=== PATIENT | male | born 2005 | race Hispanic/Latino ===

== ENCOUNTER 2023-09-25 10:39 | Emergency (ER) | payer OTHER ==
[~2023-09-25] VITALS: Ht 170.2 cm; Wt 67.9 kg
[2023-09-25] MEDS ORDERED: CETI-24 PO (10:57)
[2023-09-25 12:49] LABS: CHLAMYDIA DNA AMPLIFICATION NEGATIVE (NEGATIVE); GC DNA AMPLIFICATION NEGATIVE (NEGATIVE)
[2023-09-25 14:05] VITALS: BP 128/70; TEMP 98; O2SAT 100
== END 2023-09-25 14:08 | disposition home or self-care (01) ==
LOC: M ED 10:39 → EDBD 10:39 → M ED 14:08
DX: R30.0 Dysuria (principal); Z79.899 Other long term (current) drug therapy

== ENCOUNTER 2024-04-04 11:52 | Emergency (ER) | payer OTHER ==
[~2024-04-04] VITALS: Ht 172.7 cm; Wt 68.6 kg
[~2024-04-04 11:52] MED LIST: CETI-24 PO
[2024-04-04] MEDS ORDERED: CLOT1CRE56 TOP (15:44)
[2024-04-04 15:57] VITALS: BP 144/83; TEMP 97.8; O2SAT 98
== END 2024-04-04 15:58 | disposition home or self-care (01) ==
LOC: M ED 11:52
DX: R21 Rash and other nonspecific skin eruption (principal); B35.4 Tinea corporis; Z79.899 Other long term (current) drug therapy

== ENCOUNTER 2025-06-24 07:52 | Emergency (ER) | payer OTHER ==
[~2025-06-24] VITALS: Ht 172.7 cm; Wt 70.8 kg
[~2025-06-24 07:52] MED LIST changes: +CLOT1CRE56 TOP; +IBUP600T42 PO; +ONDA-282 PO
[2025-06-24] MEDS: ALBUTEROL SULFATE 2.5 MG/0.5 ML INH CONCENTRATE NEB SOLN NEB ONE (10:52)
[2025-06-24 11:07] VITALS: O2SAT 98
[2025-06-24 11:16] VITALS: BP 158/91
[2025-06-24 11:30] VITALS: TEMP 97.8
== END 2025-06-24 11:31 | disposition home or self-care (01) ==
LOC: M ED 07:52
DX: J98.01 Acute bronchospasm (principal); F17.290 Nicotine dependence, other tobacco product, uncomplicated

== ENCOUNTER 2025-06-27 01:46 | Emergency (ER) | payer OTHER ==
[~2025-06-27] VITALS: Ht 172.7 cm; Wt 70.4 kg
[2025-06-27 06:52] LABS: VENOUS BASE EXCESS -2.5 (-2.0-2.0); VENOUS HCO3 23.7 MMOL/L (23.0-27.0); VENOUS O2 SATURATION 89.9 % (60.0-80.0); VENOUS PARTIAL PRESSURE CO2 45.8 mmHg (38.0-50.0); VENOUS PARTIAL PRESSURE O2 63.5 mmHg (30.0-50.0); VENOUS PH 7.332 UNITS (7.330-7.430); VENOUS STANDARD HCO3 22.2 MMOL/L; VENOUS TOTAL CO2 25.1 MMOL/L (24.0-28.0)
[2025-06-27 06:57] LABS: BASO # 0.1 10^3/uL (0.0-0.2); BASO % 0.7 % (0.0-1.0); EOS # 0.2 10^3/uL (0.0-0.5); EOS % 2.5 % (0.0-3.0); LYMPH # 2.9 10^3/uL (1.5-5.0); LYMPH % 42.7 % (24.0-44.0); MONO # 0.5 10^3/uL (0.0-0.8); MONO % 7.5 % (2.0-8.0); NEUTROPHILS # 3.1 10^3/uL (1.5-8.5); NEUTROPHILS % 46.0 % (36.0-66.0); PLATELET COUNT, AUTOMATED 301 10^3/uL (150-450)
[2025-06-27] MEDS ORDERED: ISOVUE-370 76% 100 ML VIAL As Ordered ONE (07:07)
[2025-06-27] MEDS: ALBUTEROL SULFATE 2.5 MG/0.5 ML INH CONCENTRATE NEB SOLN NEB ONE (07:45)
[2025-06-27] MEDS ORDERED: ALBU8.5H INH (08:28)
[2025-06-27] MEDS ORDERED: BREAMIS10 MC (08:28)
[2025-06-27 08:30] VITALS: BP 116/58; TEMP 98.9; O2SAT 96
== END 2025-06-27 08:42 | disposition home or self-care (01) ==
LOC: M ED 01:46
DX: R06.00 Dyspnea, unspecified (principal)
CPT/HCPCS: 71275; 80047; 82803; 85025; 85652; 86140; 87486; 87581; 87633; 87798; 94640; 99284; Q9967